=== PATIENT | female | born 1995 | race Caucasian/White ===

== ENCOUNTER 2017-12-03 21:26 | Emergency (ER) | payer MEDICAID ==
[~2017-12-03] VITALS: Ht 154.9 cm; Wt 69.0 kg
[~2017-12-03 21:26] MED LIST: CYCL-1 PO
[2017-12-03 21:33] VITALS: BP 122/79
== END 2017-12-03 21:48 | disposition home or self-care (01) ==
LOC: ER 21:26
DX: J20.9 Acute bronchitis, unspecified (principal); J45.909 Unspecified asthma, uncomplicated
CPT/HCPCS: 99281